=== PATIENT | male | born 2000 | race Caucasian/White ===

== ENCOUNTER → 2023-08-13 | Day surgery (SDC) | payer BC ==
[~2023-08-13] MED LIST: Gadobenate Dimeglumine 2 ML, Sodium Chloride 0.9% 250 ML 10 ML, Iopamidol 8 ML, Lidocai... FS SCH; Gadobenate Dimeglumine 529 MG/1 ML (5 ML SDV) ONE; Iopamidol 300 61% 30 ML VIAL ONE
== END ==
LOC: CSHRAD 09:58
PROVIDERS: ATTEND Family Medicine
PROC: BP3MYZZ Magnetic Resonance Imaging (MRI) of Left Wrist using Other Contrast (ICD-10-PCS; principal; 2023-08-13)
DX: S63.502A Unspecified sprain of left wrist, initial encounter (principal); X58.XXXA Exposure to other specified factors, initial encounter
CPT/HCPCS: 25246; 77002; A9577; J0171; J7050; Q9967